=== PATIENT | female | born 1985 | race Caucasian/White ===

== ENCOUNTER → 2016-09-14 | Outpatient (CLI) | payer OTHER ==
[~2016-09-14] MED LIST: ENDOCET 5-3251 EACH PO; FLEXERIL10 MG PO; IBUPROFEN800 MG PO; KEFLEX500 MG PO; MOTRIN800 MG PO; NAPROSYN500 MG PO; NATALCARE RX1 TABLE1 PO; NEXIUM 24HR20 MG PO; NOHOMEMEDS; PEPCID20 MG PO; PERCOCET 5/31 TABLET PO; PREDNISONE10 M1 PO; PREFERA-OB P1 TABLET PO; PRENATAL TABLE1 EAC3 PO; PROZAC20 MG PO; TYLENOL EXTRA500 MG PO; TYLENOL REGULA325 MG PO; VALTREX1000 MG PO; ValTRex PO; ZANTAC150 MG PO; ZOFRAN ODT8 MG PO; ZOFRAN4 MG PO; ~No Medications
[2016-09-14 16:15] LABS: APPEARANCE CLEAR/COLORLESS; RED CELL AREA COUNTED 18; RED CELL COUNT 0 /MM^3 (0-1); RED CELL DILUTION 1; WBC AREA COUNTED 18; WBC DILUTION 1; WHITE CELL COUNT 0 /MM^3 (0-5); WHITE CELL RAW COUNT 0
[2016-09-14 17:31] LABS: CSF LDH < 25 IU/L
== END | disposition home or self-care (01) ==
LOC: RAD 14:29
PROVIDERS: Psychiatry & Neurology Neurology
PROC: 009U3ZZ Drainage of Spinal Canal, Percutaneous Approach (ICD-10-PCS; principal; 2016-09-14)
DX: H53.8 Other visual disturbances (principal)
CPT/HCPCS: 62270; 77002; 82945; 83615 91; 84157; 87070; 87205; 89051